=== PATIENT | male | born 1935 | race Caucasian/White ===

== ENCOUNTER → 2021-08-07 10:12 | Outpatient (CLI) | payer MEDICARE, OTHER, SELFPAY ==
--- NOTE | 2021-08-07 | DI.RAD.S_ITS ---
PROCEDURE: FL BARIUM SWALLOW W SPEECH INDICATIONS: Dysphagia, pharyngeal phase COMPARISON: None. TECHNIQUE: Examination was conducted in conjunction with speech pathology per standard protocol. In the lateral projection, filming was performed of the patient swallowing. AP projection filming may also be performed with patient swallowing. COMPARISON: FINDINGS: Function: The oral preparatory phase appears normal, with proper containment. The subsequent oral propulsive phase, pharyngeal phase, and esophageal phase of swallowing also appear normal with all proffered substances. There was silent tracheal aspiration Moderate residue was noted. Morphology: No cricopharyngeal bar is identified. No cervical esophageal webs. No Zenker's diverticulum. No strictures. IMPRESSION: Silent tracheal aspiration. Dictated by: Rodríguez Sneed M.D. on 08/07/2021 at 15:19 Approved by: Rodríguez Sneed M.D. on 08/07/2021 at 15:20
--- NOTE | 2021-08-08 17:09 | ST.SWALLOW ---
Visit Care Team Role Provider Type Doctor MD Stephon Primary Care Provider Non-Staff Specialty: Medical Address: Phone: Fax: Email: Attending Provider Referring Provider Specialty: Address: Phone: Fax: Email: Modified Barium Swallow Study MEDICAL RECORDS COORDINATOR Modified Barium Swallow Study Start: 08/07/21 16:11 Freq: Status: Active Protocol: Document 08/07/21 16:11 LNK (Rec: 08/07/21 17:20 LNK [id number]) Modified Barium Swallow Study Total Time Visit Start Time 10:30 Visit Stop Time 11:00 Total Visit Minutes 30 Referral Referring Physician Almas Mackey MD Setting Setting Outpatient Care Patient Information Identification Type Name,Date of Patient History Pt presented for a Modified Barium Swallow Study (MBSS) at the referral of his PCP. Pt reported that he has difficulty with swallowing with foods and liquids sticking in his throat. He reported the greatest difficulty with swallowing stringy foods ( vegetables, some meats, etc.). To compensate, the pt noted he cuts foods into small pieces and chews very thoroughly. He stated he crushes most of his pills and swallows them in a carrier as the whole pills will get stuck and stay in his throat. Capsules appear to be swallowed without difficulty he said. 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 He reports that his aphasia has been resolved. Additionally, pt reported hypothyroidism for which he takes Thyroxin. He expressed concern that his thyroid condition my be due to his exposure to Agent [place] while serving in the [employer] in [place]. Subjective Observations Pt is a pleasant man. He was seated in the fluoroscopy chair . The instructions and procedure wer described for him, after which he indicated he understood and agreed to proceed. Patient Positioning Position View Lat-A/P Imaging Lateral View Textures Administered Trials Presented Thin Liquid via Spoon,Thin Liquid via Cup,[place] Liquid via Cup,Pudding Thick Liquid via Spoon,Regular Textures Oral Phase Source: MBSIMP (TM) (C) Bolus Specific Scoring Grid Lip Closure WFL Tongue Control During Bolus Hold WFL Bolus Prep/Mastication WFL Bolus Transport/Lingual Motion WFL A/P Lingual Propulsion Delay No Oral Residue No Impairment (WNL) Residue Clearing No Impairment (WNL) Nasal Regurgitation No Additional Oral Phase Observations Pt has upper and lower dentures that were reported to fit well. OME was noted to be WNL. Diadochokineses was WNL. Pharyngeal Phase Source: MBSIMP (TM) (C) Bolus Specific Scoring Grid Delayed Initiation of Pharyngeal Swallow Yes: premature spillage to the valeculla Soft Palate Elevation No Impairment (WNL) Tongue Base Strength/Range of Motion Moderate Impairment Residue Along the Tongue Base Yes Clearance of Residue Along Tongue Base Mild Impairment Laryngeal Elevation Moderate Impairment Anterior Hyoid Movement Moderate Impairment Epiglottic Range of Motion Severe Impairment Vallecular Residue Yes: moderate-significant residue observed across all trials Clearance of Vallecular Residue Moderate Impairment Laryngeal Vestibular Closure Moderate Impairment Pharyngeal Stripping Wave Severe Impairment Posterior Pharyngeal Wall Residue Yes Clearance of Posterior Pharyngeal Wall Moderate Impairment Residue Upper Esophageal Sphincter Opening Moderate Impairment Residue in the Pyriform Sinuses Yes Clearance of Residue in the Pyriform Mild Impairment Sinuses Esophageal Clearance Upright Position Moderate Impairment Pharyngoesophageal Backflow Observed No Additional Pharyngeal Phase Observations Premature spillage to the valeculla was observed. Swallow response we delayed. Weak base of tongue strength as well as limited laryngopharyngeal contact were observe. This effected laryngeal elevation and hyoid movement and inversion of the epiglottis. The epiglottis did not invert, but was horizontal. Approximately 1/3 of the epiglottis was observed to be vertical against the posterior pharyngeal wall. This resulted in silent penetration of thin liquid into the laryngeal vestibule x5 with silent, tamar aspiration observed x3. Pt required cuing to cough, which did not clear the aspirated contrast. Residue from the valeculla was observed to penetrate the airway as well. No penetration/aspiration was observed with nectar thick liquids. Thin liquids were then safely tolerated using the strategy of turning his head and looking at his left knee (head turn with chin down ). Pharyngeal pooling was observed at the base of tongue , the valeculla, the posterior pharyngeal wall, pyriform sinuses and at the UES. Additionally, large osteopytes as well as a cricopharyngal bar were observed at the C5-C6 and C6-C7 level that impacted the bolus flow into and through the esophagus. The osteophytes and the bar together resulted in a very narrow space for bolus passage . This may explain the pt's sense of globus and pain (at times) as well as his regurgitation of undigested foods. A/P View Textures Administered Trials Presented Barium Tablet A/P View Observations Vocal Fold Function Good Residue Observed Valleculae Right,Valleculae Left,Pyriform Sinus Right, Pyriform Sinus Left Esophageal Function Stasis,Narrowing Additional Observations In the A-P view, the tablet stopped at the valeculla for ~ 10 seconds before it passed. Then again the tablet stopped in the upper esophagus near C5 -C6 for a few seconds before dislodging and passing in to the stomach. Clinical Impressions Dysphagia Type pharyngoesophageal dysphagia Findings The pt presented with pharyngoesophageal dysphagia. Base of tongue and epiglottal inversion were weak and resulted in a poor laryngeal seal. Penetration and aspiration was observed. Swallow therapy is recommended to increase the strength and ROM of the hyolarynx, which will increase the ability of the epiglottis to a fully inverted position, reducing aspiration risk. Additionally a referral to GI is recommended for evaluation re: above described observations. Rehabilitation Potential Good Patient Appropriate for Therapy Yes Recommendations Diet Liquids Order Thin Diet Order Regular Medication Recommendation As Tolerated,Crushed in Carrier Additional Dietary Needs Reminders to Use Strategies Aspiration Precautions Recommended Precautions Upright at 90 Degrees,Small Bites/Sips,Double Swallow,Left Head Turn,Left Head Tilt Additional Precautions HOB up at 45 degress to aid in esophageal emptying. Treatment Plan Therapy Recommendations Outpatient Speech Therapy,Base of Tongue Exercises, Compensatory Strategy Education Recommended Referrals Primary Care Physician,GI Consult,ENT Consult Compensatory Strategies Recommendations Sitting Upright (90 deg),Turn Head Left,Chin Tuck,Small Bites and Sips,Alternate Liquids/Solids
== END ==
PROVIDERS: PCP Internal Medicine; Referring Provider Internal Medicine; Visit Provider Internal Medicine
DX: R13.13 Dysphagia, pharyngeal phase (principal)
CPT/HCPCS: 74230; 92611

== ENCOUNTER → 2022-07-03 11:49 | Outpatient (CLI) | payer MEDICARE, OTHER, SELFPAY ==
[2022-07-03 13:41] LABS: BUN Creatinine Ratio 19.6 (6-22); Blood Urea Nitrogen 18 mg/dL (9-20); Calcium 8.4 mg/dL (8.4-10.2); Carbon Dioxide 33 mmol/L (22-32); Chloride 101 mmol/L (98-107); Estimated Glomerular Filt Rate > 60 mL/min (>60); Glucose 107 mg/dL (80-110); HEMOLYSIS < 15 (0-50); Potassium 4.5 mmol/L (3.4-5.1); Sodium 138 mmol/L (137-145)
--- NOTE | 2022-07-03 14:21 | DI.CT.S_ITS ---
PROCEDURE: CT SOFT TISSUE NECK W CON INDICATIONS: Dysphagia, oropharyngeal phase TECHNIQUE: After the administration of intravenous contrast, 3.0 mm axial sections acquired from the skull base to the upper chest with the patient phonating the sound EEE. Additional 1.5 mm axial sections acquired through the true vocal cords with the patient breathing through a straw. 1 mm thick coronal reformats were generated. For radiation dose reduction, the following was used: automated exposure control. COMPARISON: None. FINDINGS: Image quality: Excellent. Vocal cords: The right vocal cord is abnormal and appears hypodense and flaccid. There is medialization of the contralateral left vocal cord. Neck spaces: The oropharynx, nasopharynx, and pharynx demonstrate no mucosal lesions. The pyriform sinuses, epiglottis, vallecular, and tongue base all appear normal. Extramucosal spaces of the neck are unremarkable. Lymph nodes: No enlarged lymph nodes seen throughout the neck. Vessels: Visualized vasculature appears patent. Glands: The parotid and submandibular glands appear normal. Thyroid gland is small in size. Miscellaneous: Visualized brain and orbits appear unremarkable. Lung apices appear clear. Superficial soft tissues appear normal. Bones: No suspicious bony lesions. Visualized sinuses and mastoids appear unremarkable. At least moderate lower cervical spine degenerative changes are seen. IMPRESSION: Right vocal cord paralysis, with a retracted right vocal cord with associated compensatory medialization of the left vocal cord. No cause of the vocal cord paralysis is identified on this study. No tamar masses are seen. Dictated by: Rio Simmons M.D. on 07/03/2022 at 16:02 Approved by: Rio Simmons M.D. on 07/03/2022 at 16:05
== END ==
PROVIDERS: PCP Internal Medicine; Referring Provider Otolaryngology; Visit Provider Otolaryngology
DX: J38.01 Paralysis of vocal cords and larynx, unilateral (principal); R13.12 Dysphagia, oropharyngeal phase
CPT/HCPCS: 36415; 70491; 80048

== ENCOUNTER 2022-09-10 10:30 | Outpatient (RCR) | payer MEDICARE, OTHER, SELFPAY ==
--- NOTE | 2022-08-13 15:19 | ST.OPIE ---
Visit Care Team Role Provider Type Martinez Izaguirre DO Family Provider Non-Staff Primary Care Provider Specialty: Family Practice Address: [address] [place] [address], [id number] Email: Zak Yu MD Attending Provider Non-Staff Referring Provider Specialty: Ear, Nose, Throat Address: [address] [place] [address], [id number] Email: Speech-Language Pathology Initial Evaluation MACHINE II CUTTER Clinical Swallow Evaluation Start: 08/13/22 15:05 Freq: Status: Active Protocol: Document 08/13/22 15:06 TOMI (Rec: 08/13/22 15:19 ZS [id number]) Clinical Swallow Evaluation Session Time Visit Start Time 13:30 Visit Stop Time 14:00 Total Visit Minutes 30 Visit Information Visit Number Initial Evaluation Plan of Care Dates 08/13/2022 - 10/24/2022 Insurance Information Medicare Referral Referring Provider Dr. Izaguirre Reason for Referral Aspiration/penetration found on MBS Setting Assessment Location Outpatient Care Visit Type Note Type Initial evaluation Next Note Type Next Note Type Treatment Note Patient Information Identification Type Name History Jesse is an 87-year-old male who had a stroke in 2000 and has had difficulty swallowing, with food and liquid sticking in his throat. Pt had an MBS with Humaira Tilley on and case history was collected: He reported the greatest difficulty with swallowing 'stringy foods' ( vegetables, some meats, etc.). To compensate, the pt noted he cuts food into small pieces and chews very thoroughly. He stated he crushes most of his pills and swallows them in a carrier as the whole pills will get stuck and stay in his throat. Capsules appear to be swallowed without difficulty he said. 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 He reports that his aphasia has been resolved. Additionally, pt reported hypothyroidism for which he takes Thyroxin. He expressed concern that his thyroid condition may be due to his exposure to Agent [place] while serving in the [employer] in [email or web address]. Results of the MBS were as follows: The pt presented with pharyngoesophageal dysphagia. Base of tongue and epiglottal inversion were weak and resulted in a poor laryngeal seal. Penetration and aspiration was observed. Pt stated he will be traveling to [place] for 4-5 months in mid-September. Subjective Observations Pt arrived on time and agreed to participate in all session activities. Reported by Patient Current Diet Regular,Thin liquids Baseline Feeding Method Independent in self-feeding Objective Assessment Mental Status Alert,Responsive,Cooperative Findings Swallowing Function Pharyngoesophageal phase dysphagia Severity of Swallow Impairment Moderately impaired Contributing Factors to Swallow Impaired airway protection, Impairment Excessive pharyngeal residue Comment Did not complete formal assessment during session as pt demonstrated silent aspiration during MBS, which is not observable during clinical swallow evaluation. Provided education regarding swallow safety and exercises to strengthen throat and base of tongue muscles and increase swallow safety and comfort with oral intake. Provided handout with exercises and practiced each one. Pt demonstrated each exercise and MACHINE II CUTTER answered questions during practice session. Discussed POC given pt is leaving for a prolonged period in September. Pt expressed agreement and understanding with exercises and plan of care. Recommend speech therapy to continue pt education and improve swallow safety with use of pharyngeal and base of tongue exercises. Impact on Safety and Functioning Risk for aspiration Recommendations Swallowing Treatment Yes Frequency 1x/wk Duration 45 minutes Recommended Solids Regular Recommended Liquids Thin Safety Precautions/Swallowing Feed only when alert,Reduce Recommendations distractions,Upright position at least 30 minutes after meals,Small bites and sips when eating,Slow rate; swallow between bites Medication Recommendations As Tolerated Education Patient/Caregiver Education Described results of evaluation,Patient expressed understanding of evaluation, Patient expressed agreement with goals & treatment plans, Patient expressed understanding of safety precautions,Patient expressed understanding of feeding recommendations,Patient requires further education/ training Goals Short-term Goals 1. The pt will perform exercises to increase strength , coordination, and ROM of swallow musculature independently to reduce risk of aspiration and increase comfort with oral intake. Long-term Goals The pt will safely tolerate least restrictive diet to meet his nutrition and hydration needs.
--- NOTE | 2022-08-13 15:19 | ST.OPPOC ---
Physical, Occupational & Speech Therapy At [facility] Visit Care Team Role Provider Type Martinez Izaguirre DO Family Provider Non-Staff Primary Care Provider Address: [address] [place], [address] Zak Yu MD Attending Provider Non-Staff Referring Provider Address: [address] [place], [place] [address] [address], [address] Speech Pathology Plan of Care Plan of Care Dates 08/13/2022 - 10/24/[address] Izaguirre Patient History Jesse is an 87-year-old male who had a stroke in 2000 and has had difficulty swallowing, with food and liquid sticking in his throat. Pt had an MBS with Humaira Tilley on 08/07/2021 and case history was collected: He reported the greatest difficulty with swallowing 'stringy foods' (vegetables, some meats, etc.). To compensate, the pt noted he cuts food into small pieces and chews very thoroughly. He stated he crushes most of his pills and swallows them in a carrier as the whole pills will get stuck and stay in his throat. Capsules appear to be swallowed without difficulty he said. 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 He reports that his aphasia has been resolved. Additionally, pt reported hypothyroidism for which he takes Thyroxin. He expressed concern that his thyroid condition may be due to his exposure to Agent [place] while serving in the [employer] in [place]. Results of the MBS were as follows: The pt presented with pharyngoesophageal dysphagia. Base of tongue and epiglottal inversion were weak and resulted in a poor laryngeal seal. Penetration and aspiration was observed. Pt stated he will be traveling to [place] for 4- 5 months in mid-September. Short-term Goals 1. The pt will perform exercises to increase strength, coordination, and ROM of swallow musculature independently to reduce risk of aspiration and increase comfort with oral intake . Long-term Goals The pt will safely tolerate least restrictive diet to meet his nutrition and hydration needs. Comment: Electronically Signed by: EVONNE Daniels 08/13/22 [id number] If you are in agreement with this Plan of Care, please return a signed and dated copy. I have reviewed this Plan of Care and certify that the skilled therapy services above are required to meet the patient?s needs. Physician Signature Date Printed Name and Credentials Clinical Instructor Signature Printed Name and Credentials
--- NOTE | 2022-08-20 14:41 | ST.OPTN ---
Visit Care Team Role Provider Type Martinez Izaguirre DO Family Provider Non-Staff Primary Care Provider Address: [address] [place] [address], [address] Zak Yu MD Attending Provider Non-Staff Referring Provider Address: [address] [place], [place] [address], [address] FOLDER GLUER OPERATOR Treatment Note FOLDER GLUER OPERATOR Treatment Note Start: 08/20/22 14:33 Freq: Status: Active Protocol: Document 08/20/22 14:33 TOMI (Rec: 08/20/22 14:41 ZS [id number]) Speech Pathology Treatment Note Session Time Visit Start Time 10:30 Visit Stop Time 11:00 Total Visit Minutes 30 Visit Information Visit Number 1 Plan of Care Dates 08/13/2022 - 10/24/2022 Insurance Information Medicare Setting Treatment Setting Outpatient Care Visit Type Note Type Treatment Note Next Note Type Next Note Type Treatment Note General Information Patient History Jesse is an 87-year-old male who had a stroke in 2000 and has had difficulty swallowing, with food and liquid sticking in his throat. Pt had an MBS with Humaira Tilley on and case history was collected: He reported the greatest difficulty with swallowing 'stringy foods' ( vegetables, some meats, etc.). To compensate, the pt noted he cuts food into small pieces and chews very thoroughly. He stated he crushes most of his pills and swallows them in a carrier as the whole pills will get stuck and stay in his throat. Capsules appear to be swallowed without difficulty he said. 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 He reports that his aphasia has been resolved. Additionally, pt reported hypothyroidism for which he takes Thyroxin. He expressed concern that his thyroid condition may be due to his exposure to Agent [place] while serving in the [employer] in [place]. Results of the MBS were as follows: The pt presented with pharyngoesophageal dysphagia. Base of tongue and epiglottal inversion were weak and resulted in a poor laryngeal seal. Penetration and aspiration was observed. Pt stated he will be traveling to [place] for 4-5 months in mid-September. Subjective Identification Type Name Identification Reconciled With Medical Record Observations/Patient Presentation Jesse arrived on time and agreed to participate in all session activities. He reported consistent HEP and shared the super-supraglottic exercise was difficult as he often had a dry mouth and could not complete the second swallow. He reported all the other exercises were easy. Chief Complaint(s) Swallowing Objective Short Term Goals 1. The pt will perform exercises to increase strength , coordination, and ROM of swallow musculature independently to reduce risk of aspiration and increase comfort with oral intake. Maintenance Helper Goals The pt will safely tolerate least restrictive diet to meet his nutrition and hydration needs. Treatment Activities Reviewed HEP and practiced exercises. Provided feedback to increase challenge of exercises and answered pt questions regarding exercises. Assessment Patient Response to Treatment Excellent Impairments Identified Swallow Assessment of Improvement Palpated larynx as pt completed alnodra maneuver and pt held larynx in elevated position comfortably for 10 seconds. He exhibited difficulty with a dry mouth for second swallow when completing super-supraglottic swallow exercise, and it was recommended he complete the exercise with a sip of water to aid in dryness. Pt completed Karina Maneuver with tongue mostly in his mouth, not visibly protruding, and reported the exercise was very easy. Provided feedback to protrude tongue more to increase difficulty of exercise and pt practiced this and demonstrated understanding. Answered all pt questions and discussed adding additional exercises in next session depending on progress. Reviewed with Patient Goals,Progress Being Made,Home Exercise Program Patient/Caregiver Understanding Excellent Plan Frequency of Treatment Once a Week Length of Session 45 Minutes Therapeutic Contents Home Exercise Program, Swallowing/Feeding Provided Patient/Caregiver Instruction Home Exercise Program,Plan of Care,Questions/Concerns Therapy Recommendations Continue with Current Program
--- NOTE | 2022-08-27 15:11 | ST.OPTN ---
Visit Care Team Role Provider Type Martinez Izaguirre DO Family Provider Non-Staff Primary Care Provider Address: [address] [place] [address], [id number] Zak Yu MD Attending Provider Non-Staff Referring Provider Address: [address] [place], [place] [address], [address] CUSHION INSTALLER Treatment Note CUSHION INSTALLER Treatment Note Start: 08/20/22 14:33 Freq: Status: Active Protocol: Document 08/27/22 15:07 TOMI (Rec: 08/27/22 15:11 ZS [id number]) Speech Pathology Treatment Note Session Time Visit Start Time 14:30 Visit Stop Time 15:00 Total Visit Minutes 30 Visit Information Visit Number 2 Plan of Care Dates 08/13/2022 - 10/24/2022 Insurance Information Medicare Setting Treatment Setting Outpatient Care Visit Type Note Type Treatment Note Next Note Type Next Note Type Treatment Note General Information Patient History Jesse is an 87-year-old male who had a stroke in 2000 and has had difficulty swallowing, with food and liquid sticking in his throat. Pt had an MBS with Humaira Tilley on and case history was collected: He reported the greatest difficulty with swallowing 'stringy foods' ( vegetables, some meats, etc.). To compensate, the pt noted he cuts food into small pieces and chews very thoroughly. He stated he crushes most of his pills and swallows them in a carrier as the whole pills will get stuck and stay in his throat. Capsules appear to be swallowed without difficulty he said. 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 He reports that his aphasia has been resolved. Additionally, pt reported hypothyroidism for which he takes Thyroxin. He expressed concern that his thyroid condition may be due to his exposure to Agent [place]land while serving in the [employer] in [place]. Results of the MBS were as follows: The pt presented with pharyngoesophageal dysphagia. Base of tongue and epiglottal inversion were weak and resulted in a poor laryngeal seal. Penetration and aspiration was observed. Pt stated he will be traveling to [place] for 4-5 months in mid-September. Subjective Identification Type Name Identification Reconciled With Medical Record Observations/Patient Presentation Georgi arrived on time and agreed to participate in all session activities. 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 Pt reported when he did complete exercises, he was experiencing soreness in his tongue from biting down during the Karina Maneuver. Chief Complaint(s) Swallowing Objective Short Term Goals 1. The pt will perform exercises to increase strength , coordination, and ROM of swallow musculature independently to reduce risk of aspiration and increase comfort with oral intake. Skilled Nursing Goals The pt will safely tolerate least restrictive diet to meet his nutrition and hydration needs. Treatment Activities Reviewed HEP and practiced exercises. Provided feedback to increase challenge of exercises and answered pt questions regarding exercises. Assessment Patient Response to Treatment Excellent Impairments Identified Swallow Assessment of Improvement Pt reported drinking sips of water aids in completing Karina Maneuver and super- supraglottic exercises. He reported soreness in his tongue following Karina Maneuver, from biting down on his tongue. Recommend trying exercises using fingers to hold tongue rather than teeth to reduce discomfort. Pt expressed agreement. Provided new exercise and practiced with pt. He exhibited understanding. Answered pt questions. Pt has an appointment next Saturday (09/07 ) and another appointment on Saturday (09/10). Will discuss POC with these two appointments (and future appointments) at appointment on 09/07). Reviewed with Patient Goals,Progress Being Made,Home Exercise Program Patient/Caregiver Understanding Excellent Plan Frequency of Treatment Once a Week Length of Session 45 Minutes Therapeutic Contents Home Exercise Program, Swallowing/Feeding Provided Patient/Caregiver Instruction Home Exercise Program,Plan of Care,Questions/Concerns Therapy Recommendations Continue with Current Program
--- NOTE | 2022-09-10 11:03 | ST.OPDS ---
Visit Care Team Role Provider Type Martinez Izaguirre DO Family Provider Non-Staff Primary Care Provider Address: [address] [place] [address], [id number] Zak Yu MD Attending Provider Non-Staff Referring Provider Address: [facility] [address], [address] SPACE CONTROL AGENT Treatment Note SPACE CONTROL AGENT Treatment Note Start: 08/20/22 14:33 Freq: Status: Active Protocol: Document 09/10/22 10:57 ZS (Rec: 09/10/22 11:03 ZS [id number]) Speech Pathology Treatment Note Session Time Visit Start Time 10:30 Visit Stop Time 11:00 Total Visit Minutes 30 Visit Information Visit Number 3 Plan of Care Dates 08/13/2022 - 10/24/2022 Insurance Information Medicare Setting Treatment Setting Outpatient Care Visit Type Note Type Discharge Summary General Information Patient History Jesse is an 87-year-old male who had a stroke in 2000 and has had difficulty swallowing, with food and liquid sticking in his throat. Pt had an MBS with Humaira Tilley on and case history was collected: He reported the greatest difficulty with swallowing 'stringy foods' ( vegetables, some meats, etc.). To compensate, the pt noted he cuts food into small pieces and chews very thoroughly. He stated he crushes most of his pills and swallows them in a carrier as the whole pills will get stuck and stay in his throat. Capsules appear to be swallowed without difficulty he said. 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 He reports that his aphasia has been resolved. Additionally, pt reported hypothyroidism for which he takes Thyroxin. He expressed concern that his thyroid condition may be due to his exposure to Agent [place] while serving in the [employer] in [place]. Results of the MBS were as follows: The pt presented with pharyngoesophageal dysphagia. Base of tongue and epiglottal inversion were weak and resulted in a poor laryngeal seal. Penetration and aspiration was observed. Pt stated he will be traveling to [place] for 4-5 months in mid-September. Subjective Identification Type Name Identification Reconciled With Medical Record Observations/Patient Presentation Jesse arrived on time and agreed to participate in all session activities. He reported consistent HEP and improvement in swallowing solids. Pt indicated liquids still are difficult, but he has no difficulty swallowing solids at this time. Pt added he has several demands on his schedule at this time and is not able to continue attending speech therapy. Pt requested discharge to home exercise program. Chief Complaint(s) Swallowing Objective Short Term Goals 1. The pt will perform exercises to increase strength , coordination, and ROM of swallow musculature independently to reduce risk of aspiration and increase comfort with oral intake. Detention Goals The pt will safely tolerate least restrictive diet to meet his nutrition and hydration needs. Treatment Activities Reviewed HEP, provided additional exercises, and discussed questions and POC. Assessment Patient Response to Treatment Excellent Impairments Identified Swallow Assessment of Improvement Pt reported drinking sips of water aids in completing Karina Manuever and super- supraglottic exercises. Discussed use of chin tuck or effortful swallow when drinking thin liquids. Provided new exercises and practiced with pt. He exhibited understanding. Answered pt questions. Discharging from speech therapy to home exercise program due to consistency in HEP and current demands on pt schedule. Pt has made excellent progress toward goals. Given results of previous MBS, improvement in swallow safety is unable to be assessed with clinical swallow assessment. Reviewed with Patient Goals,Progress Being Made,Home Exercise Program Patient/Caregiver Understanding Excellent Plan Frequency of Treatment Once a Week Length of Session 45 Minutes Therapeutic Contents Home Exercise Program, Swallowing/Feeding Provided Patient/Caregiver Instruction Home Exercise Program,Plan of Care,Questions/Concerns Therapy Recommendations Discharge to Home Exercise Program Reason for Discharge Pt request due to increased demands on schedule, cannot make appointments.
== END 2022-09-10 11:29 ==
LOC: SP 10:30
PROVIDERS: Family Provider Family Medicine; PCP Family Medicine; Referring Provider Specialist; Visit Provider Specialist
DX: J38.01 Paralysis of vocal cords and larynx, unilateral (principal); R13.10 Dysphagia, unspecified
CPT/HCPCS: 92526; 92610

== ENCOUNTER → 2022-09-17 06:37 | Outpatient (CLI) | payer MEDICARE, OTHER, SELFPAY ==
--- NOTE | 2022-09-17 06:39 | DI.ECHO.S_ITS ---
[facility] +---------+ : : [address] : : : : [id number] : : : : Phone: [phone]+ Echocardiogram Report + + :Name: MAITE REY Study Date: 09/17/2022 Height: 70 in : :[facility] ReadingLocation: Weight: 160 lb : : Gender: Male BSA: 1.9 m2 : :: 1935 Age: 87 yrs BP: 125/65 mmHg: :Reason For Study: Aortic valve stenosis : :Ordering Physician: HERNAN, : :RAJINDER Performed By: Edgar Renee : :Referring: RAJINDER BECERRA : + + Interpretation Summary Normal sinus rhythm. Normal LV size and wall thickness; normal wall motion and LV systolic function. EF is 55-60%. Stage I diastolic dysfunction. Normal chamber sizes. Aortic valve leaflets are moderately thickened and calcified especially the right coronary leaflet. There is mild aortic stenosis and mild associated aortic regurgitation. Compared to prior study 09/22/2014, aortic stenosis got a little worse. Procedure: A two-dimensional transthoracic echocardiogram with color flow and Doppler was performed. The study quality was technically adequate. Comparison is made with the echocardiogram of 09/22/2014. Left Ventricle: The left ventricle is normal in size and wall thickness. Left ventricular systolic function is normal. The ejection fraction is estimated to be 55-60%. There are no focal wall motion abnormalities. Diastolic parameters suggest a relaxation abnormality of the left ventricle, consistent with probable normal filling pressures. Right Ventricle: The right ventricle is normal in size and function. Atria: Both atria are normal in size. The interatrial septum grossly appears intact with no obvious evidence for an atrial septal defect. Mitral Valve: The mitral valve is normal in structure and function. There is mild mitral regurgitation. Aortic Valve: The aortic valve is moderately calcified. There is mild aortic stenosis. The aortic valve mean gradient is 18 mmHg. The calculated aortic valve area is 1.1 cm2. There is mild aortic regurgitation. Tricuspid Valve: The tricuspid valve is normal in structure and function. Pulmonary artery pressures cannot be estimated because of the lack of a measurable TR jet velocity. There is a trace or physiologic amount of tricuspid regurgitation. Pulmonic Valve: The pulmonic valve is normal in structure and function. There is mild pulmonic regurgitation. Great Vessels: The aortic root is normal size. The dimensions of the ascending aorta are normal. The IVC is of normal diameter and collapses greater than 50% with a sniff. This suggests a low right atrial pressure of 3 mm Hg. Pericardium/ Pleura There is no pericardial effusion. There is no pleural effusion. MMode/2D Measurements & Calculations LVIDd: 5.5 cm LVOT diam: 2.2 cm LVIDs: 3.6 cm Ao root diam: 3.2 cm FS: 34.5 % asc Aorta Diam: 3.3 cm IVSd: 0.90 cm LVPWd: 0.80 cm LV matias. diameter/BSA (cm/m^2): 2.9 LV sys. diameter/BSA (cm/m^2): 1.9 LA dimension: 3.6 cm RA long axis: 4.2 cm LA A2 area: 16.5 cm2 RA area: 12.8 cm2 LA A4 area: 15.5 cm2 RA vol: 33.0 ml LA length (vol): 4.9 cm RA : 17.4 ml/m2 LA vol: 44.0 ml LA vol index: 23.2 ml/m2 TAPSE_phl: 2.4 cm Doppler Measurements & Calculations Ao V2 max: 281.0 cm/sec LVOT Max Piyush: 77.0 cm/sec Ao V2 mean: 205.0 cm/sec LV V1 max P.4 mmHg Ao max P.0 mmHg LV V1 VTI: 21.1 cm Ao mean P.0 mmHg TORIN(I,D): 1.1 cm2 Ao V2 VTI: 75.3 cm TORIN(V,D): 1.0 cm2 sev ratio: 0.28 TORIN indexed to BSA (cm^2/m^2): 0.56 AI P1/2t: 561.3 msec AI dec slope: 191.0 cm/sec2 MV E max piyush: 79.7 cm/sec SV(LVOT): 80.2 ml MV A max piyush: 80.1 cm/sec MV E/A: 1.00 Med Peak E' Piyush: 7.7 cm/sec E/E' med: 10.3 Lat Peak E' Piyush: 8.3 cm/sec E/E' lat: 9.6 E/e' average: 9.9 MV dec time: 0.20 sec AV P1/2t-pr_phl: 560.0 msec MV P1/2t-pr_phl: 60.0 msec AV VR_phl: 0.27 TORIN(VTI)/BSA_phl: 0.56 Electronically signed by: Alissa Gaffney M.D. on Reading Physician:09/17/2022 02:21 PM
--- NOTE | 2022-09-17 07:59 | DI.MRI.S_ITS ---
PROCEDURE: MR HEAD/BRAIN WO/W CON INDICATIONS: Dizziness giddiness/headaches/hx aortic stenosis TECHNIQUE: Noncontrast axial T1 spin echo, axial T2 fast spin echo, sagittal and axial FLAIR, coronal T2 fast spin echo, axial gradient echo, axial diffusion and ADC through the brain. After the administration of contrast, axial and coronal and sagittal T1 spin echo with fat saturation through the brain. COMPARISON: [facility], CT, CT SOFT TISSUE NECK W CON, 07/03/2022, 14:07. FINDINGS: Image quality: Excellent. CSF spaces: Basal cisterns are patent. No extra-axial fluid collections. Ventricles are normal in size and shape. Brain: No midline shift. No intracranial bleeds or masses. No abnormal intracranial enhancement. There is cerebral volume loss for age. There is periventricular white matter chronic small vessel ischemic change. The brainstem appears normal. Diffusion-weighted images demonstrate no acute ischemic insults. Encephalomalacia is present in the right parietal lobe consistent with old ischemia. There is a 6 mm focus decreased signal intensity within the left frontal temporal lobe on gradient sequence. This area does not correspond to other signal abnormality. No priors are available for comparison. Normal intravascular flow voids are present. Skull and face: Calvarial marrow is normal in signal. Orbits appear normal. Sinuses: Sinuses and mastoids appear clear. IMPRESSION: 1. No acute intracranial process. 2. Moderate atrophy and chronic microvascular ischemic changes. 3. 6 mm hypointense focus within the left frontal temporal lobe on gradient sequence as above suggestive of small cavernous angioma. Dictated by: Emmanuelle Benito M.D. on 09/17/2022 at 11:39 Approved by: Emmanuelle Benito M.D. on 09/17/2022 at 11:42
== END ==
PROVIDERS: Family Provider Family Medicine; PCP Family Medicine; Referring Provider Student in an Organized Health Care Education/Training Program; Visit Provider Student in an Organized Health Care Education/Training Program
DX: G93.89 Other specified disorders of brain (principal); I08.0 Rheumatic disorders of both mitral and aortic valves; R42 Dizziness and giddiness; R51.9 Headache, unspecified
CPT/HCPCS: 70553; 93306; A9579

== ENCOUNTER → 2022-10-02 08:35 | Outpatient (CLI) | payer MEDICARE, OTHER, SELFPAY ==
--- NOTE | 2022-10-02 | DI.US.S_ITS ---
PROCEDURE: US CAROTID DOPPLER BI INDICATIONS: DIZZINESS/HEADACHE TECHNIQUE: Color and pulse Doppler interrogation was performed of both carotid systems, with image documentation and velocity measurements. COMPARISON: [facility], MR, MR HEAD/BRAIN WO/W CON, 09/17/2022, 8:13. FINDINGS: Stenosis calculations are based on SRU (Society of Radiologists in Ultrasound) criteria. The flow velocities and the arterial waveforms are normal within both carotid arterial systems. Atherosclerotic plaque is seen on both sides. The estimated degree of internal carotid artery stenosis is less than 50%. Antegrade flow is confirmed within both vertebral arteries. IMPRESSION: No hemodynamically significant stenosis is seen. Atherosclerotic plaque is noted bilaterally. Dictated by: Rio Simmons M.D. on 10/02/2022 at 15:06 Approved by: Rio Simmons M.D. on 10/02/2022 at 15:07
== END ==
PROVIDERS: Family Provider Family Medicine; PCP Family Medicine; Referring Provider Student in an Organized Health Care Education/Training Program; Visit Provider Student in an Organized Health Care Education/Training Program
DX: I65.23 Occlusion and stenosis of bilateral carotid arteries (principal); R42 Dizziness and giddiness; R51.9 Headache, unspecified
CPT/HCPCS: 93880

== ENCOUNTER → 2023-06-27 13:34 | Outpatient (CLI) | payer MEDICARE, OTHER, SELFPAY ==
--- NOTE | 2023-06-27 | DI.ECHO.S_ITS ---
[facility]---------+ [facility] +---------+ : : [address] : : : : [id number] : : : : Phone: [phone]---------+ Echocardiogram Report + + :Name: MAITE REY Study Date: 06/27/2023 Height: 70 in : :[facility] ReadingLocation: Weight: 158 lb : : Gender: Male BSA: 1.9 m2 : :: 1935 Age: 88 yrs BP: 154/77 mmHg: :Reason For Study: Aortic Valve Stenosis : :Ordering Physician: ALICIA, : :LESTER Performed By: Aidee Jiménez : :Referring: LESTER PLEITEZ : + + Interpretation Summary 1) Normal left ventricular thickness, size, wall motion, and systolic function (EF 55-60%). 2) Normal right ventricular size and function. 3) There is moderate aortic stenosis (valve area 0.9cm2, mean gradient 19mmHg, severity ratio 0.26). 4) Compared to the Echo done 09/17/2022, no significant change. Procedure: A two-dimensional transthoracic echocardiogram with color flow and Doppler was performed. The study quality was technically adequate. Comparison is made with the echocardiogram of 09/17/2022. The patient was in normal sinus rhythm during the exam. Left Ventricle: The left ventricle is normal in size. There is normal left ventricular wall thickness. Proximal septal thickening is noted. The ejection fraction is estimated to be 55-60%. Left ventricular systolic function appears normal without focal wall motion abnormalities. Diastolic parameters suggest a pseudonormalization pattern, consistent with probable elevated filling pressures. Right Ventricle: The right ventricle is normal size. The right ventricular systolic function is normal. Atria: The left atrial size is normal. Right atrial size is normal. There is no Doppler evidence for an interatrial shunt. Mitral Valve: The mitral valve leaflets appear mildly thickened, but open well. There is no mitral valve stenosis. There is mild mitral regurgitation. Aortic Valve: The aortic valve is heavily calcified. There is moderate aortic stenosis. The peak aortic velocity is 2.92 m/sec. The aortic valve mean gradient is 20 mmHg. There is mild aortic regurgitation. Tricuspid Valve: The tricuspid valve is normal. There is no tricuspid stenosis. There is trace tricuspid regurgitation. Pulmonary artery pressures cannot be estimated because of the lack of a measurable TR jet velocity. Pulmonic Valve: The pulmonic valve leaflets are thin and pliable; valve motion is normal. There is no pulmonic valvular stenosis. There is trace pulmonic regurgitation. Great Vessels: The aortic root is normal size. The ascending aorta is at the upper limits of normal in size. The pulmonary artery is normal size. The IVC is of normal diameter and collapses greater than 50% with a sniff. This suggests a low right atrial pressure of 3 mm Hg. Pericardium/ Pleura There is no pericardial effusion. There is no pleural effusion. MMode/2D Measurements & Calculations LVIDd: 4.5 cm LVOT diam: 2.0 cm LVIDs: 3.8 cm Ao root diam: 3.1 cm FS: 15.6 % asc Aorta Diam: 3.3 cm IVSd: 1.5 cm LVPWd: 0.90 cm LV matias. diameter/BSA (cm/m^2): 2.4 LV sys. diameter/BSA (cm/m^2): 2.0 LA A2 area: 14.7 cm2 RA long axis: 4.4 cm LA A4 area: 12.7 cm2 RA area: 11.7 cm2 LA length (vol): 4.9 cm RA vol: 26.6 ml LA vol: 32.5 ml RA : 14.1 ml/m2 LA vol index: 17.2 ml/m2 RVD1 (basal): 3.7 cm LVLs ap4: 4.8 cm LVLd ap2: 6.4 cm TAPSE_phl: 2.5 cm LVLs ap2: 5.2 cm Doppler Measurements & Calculations Ao V2 max: 287.0 cm/sec LVOT Max Piyush: 82.2 cm/sec Ao V2 mean: 205.5 cm/sec LV V1 max P.7 mmHg Ao max P.0 mmHg LV V1 VTI: 21.1 cm Ao mean P.0 mmHg TORIN(I,D): 0.81 cm2 Ao V2 VTI: 80.8 cm TORIN(V,D): 0.89 cm2 sev ratio: 0.26 TORIN indexed to BSA (cm^2/m^2): 0.43 MV E max piyush: 100.0 cm/sec PA V2 max: 83.3 cm/sec MV A max piyush: 81.8 cm/sec PA V2 mean: 59.0 cm/sec MV E/A: 1.2 PA mean P.0 mmHg Med Peak E' Piyush: 5.6 cm/sec PA pr(Accel): 31.3 mmHg E/E' med: 17.8 Lat Peak E' Piyush: 8.3 cm/sec E/E' lat: 12.0 E/e' average: 14.9 MV dec time: 0.17 sec MVA(VTI): 1.8 cm2 MV V2 mean: 59.6 cm/sec SV(LVOT): 65.7 ml MV mean P.7 mmHg MV V2 VTI: 35.6 cm AV VR_phl: 0.29 MV P1/2t-pr_phl: 51.0 msec TORIN(VTI)/BSA_phl: 0.35 Reading Physician:07:50 PM
== END ==
PROVIDERS: Family Provider Family Medicine; PCP Physician Assistant; Referring Provider Internal Medicine Cardiovascular Disease; Visit Provider Internal Medicine Cardiovascular Disease
DX: I08.0 Rheumatic disorders of both mitral and aortic valves (principal)
CPT/HCPCS: 93306

== ENCOUNTER → 2024-04-21 14:28 | Outpatient (CLI) | payer MEDICARE, OTHER, SELFPAY | PROVIDERS: Family Provider Family Medicine; PCP Nurse Practitioner Family; Referring Provider Nurse Practitioner Family; Visit Provider Nurse Practitioner Family | DX: R06.02 Shortness of breath (principal); F17.210 Nicotine dependence, cigarettes, uncomplicated; R94.2 Abnormal results of pulmonary function studies | CPT/HCPCS: 94060; 94726; 94729 ==

== ENCOUNTER → 2024-05-20 13:39 | Outpatient (CLI) | payer MEDICARE, OTHER, SELFPAY ==
[2024-05-20 14:09] LABS: Hematocrit 39.8 % (41-53); Hemoglobin 13.6 g/dL (13.5-17.5); Mean Corpuscular HGB Conc 34.2 % (30-36); Mean Corpuscular Hemoglobin 31.3 PG (26-34); Mean Corpuscular Volume 91.4 fL (80-100); Platelet Count 141 X10^3/uL (150-400); Red Blood Cell Count 4.35 X10^6/uL (4.5-5.9); Red Cell Distribution Width 13.7 % (11.6-14.8); White Blood Cell Count 6.9 X10^3/uL (4.5-11.0)
[2024-05-20 14:30] LABS: BUN Creatinine Ratio 27.8 (6-22); Blood Urea Nitrogen 25 mg/dL (9-20); Calcium 9.1 mg/dL (8.4-10.2); Carbon Dioxide 32 mmol/L (22-32); Chloride 102 mmol/L (98-107); Cholesterol 135 mg/dL (140-199); Estimated Glomerular Filt Rate > 60 mL/min (>60); Glucose 72 mg/dL (80-110); HDL Cholesterol 58 mg/dL (40-60); HEMOLYSIS < 15 (0-50); LDL Cholesterol Calculated 54 mg/dL (<100); Potassium 5.3 mmol/L (3.4-5.1); Sodium 138 mmol/L (137-145); Triglycerides 114 mg/dL (35-150)
== END ==
PROVIDERS: Family Provider Family Medicine; PCP Nurse Practitioner Family; Referring Provider Internal Medicine Cardiovascular Disease; Visit Provider Internal Medicine Cardiovascular Disease
DX: I65.22 Occlusion and stenosis of left carotid artery (principal); Z86.73 Personal history of transient ischemic attack (TIA), and cerebral infarction without residual deficits
CPT/HCPCS: 36415; 80048; 80061; 85027

== ENCOUNTER → 2024-06-23 10:40 | Outpatient (CLI) | payer MEDICARE, OTHER, SELFPAY ==
--- NOTE | 2024-06-23 10:42 | DI.RAD.S_ITS ---
PROCEDURE: XR CHEST 2V INDICATIONS: ALEXANDER TECHNIQUE: 2 views of the chest were acquired. COMPARISON: None. FINDINGS: Surgical changes and devices: None. Lungs and pleura: Lungs are clear. No pleural effusions or pneumothorax. Mediastinum: Mediastinal contours are normal. Heart size is normal. Bones and chest wall: No suspicious bony abnormalities irregular appearing lower ribs. Soft tissues appear unremarkable. IMPRESSION: No acute cardiopulmonary process. Dictated by: Damian Lock M.D. on 06/23/2024 at 15:52 Approved by: Damian Lock M.D. on 06/23/2024 at 16:01
== END ==
LOC: RAD 10:42
PROVIDERS: Family Provider Family Medicine; PCP Nurse Practitioner Family; Referring Provider Internal Medicine Critical Care Medicine; Visit Provider Internal Medicine Critical Care Medicine
DX: R06.00 Dyspnea, unspecified (principal)
CPT/HCPCS: 71046

== ENCOUNTER → 2024-07-08 14:29 | Outpatient (CLI) | payer MEDICARE, OTHER, SELFPAY ==
--- NOTE | 2024-07-08 14:31 | DI.ECHO.S_ITS ---
[facility] : : [address] : : [place] : : [id number] : : Phone: [phone] Echocardiogram Report + + :Name: MAITE REY Study Date: 07/08/2024 Height: 70 in : :Hospital ReadingLocation: Weight: 157 lb : : Gender: Male BSA: 1.9 m2 : :: 1935 Age: 89 yrs BP: 145/73 mmHg: :Reason For Study: DYPSNEA, AORTIC STENOSIS : :Ordering Physician: JACK, : :ADRIENNE Performed By: Willam Reynolds : :Referring: ADRIENNE SANTIAGO : + + Interpretation Summary Normal sinus rhythm. Normal left ventricular thickness, size, wall motion, and systolic function (EF 55-60%). Mild LA enlargement; otherwise normal chamber sizes. Severe aortic stenosis. DVI 0.25. peak velocity is 3.8 m/sec with mean gradient of 35 mm Hg. Calculated valve area is 0.89 cm2. Aortic valve is a trileaflet structure with moderately thickened and calcified leaflets with severely reduced leaflet excursion. There is moderate associated aortic regurgitation. Compared to prior echo 06/27/2023 aortic stenosis progressed. Valve area is stable; severity ratio is worse; mean gradient is up from 19 mm Hg to 35 mm Hg. Procedure: A two-dimensional transthoracic echocardiogram with color flow and Doppler was performed. The study quality was technically adequate. Comparison is made with the echocardiogram of 06/27/2023. The patient was in sinus rhythm with heart rates between 56-66 bpm during the exam. Left Ventricle: The left ventricle is normal in size and wall thickness. The ejection fraction is estimated to be 55-60%. Diastolic function could not be accurately assessed due to confounding valvular disease. Right Ventricle: The right ventricle is normal size. The right ventricular systolic function is normal. Atria: The left atrium is mildly dilated. Right atrial size is normal. The interatrial septum grossly appears intact with no obvious evidence for an atrial septal defect. Mitral Valve: The mitral valve is normal. There is no mitral valve stenosis. There is mild mitral regurgitation. Aortic Valve: The aortic valve is trileaflet. There is moderate aortic valve sclerosis. The opening of the prosthetic aortic valve appears to be limited. There is severe aortic stenosis. The peak aortic velocity is 3.82 m/sec. The aortic valve mean gradient is 35.3 mmHg. The calculated aortic valve area is 0.9 cm2. There is mild aortic regurgitation. Tricuspid Valve: The tricuspid valve is normal. There is no tricuspid stenosis. There is a trace or physiologic amount of tricuspid regurgitation. Pulmonic Valve: The pulmonic valve is not well visualized. There is no pulmonic valvular stenosis. There is mild pulmonic regurgitation. Great Vessels: The aortic root is normal size. The ascending aorta is at the upper limits of normal in size. The inferior vena cava was not visualized. Pericardium/ Pleura There is no pericardial effusion. There is no pleural effusion. MMode/2D Measurements & Calculations LVIDd: 5.2 cm LVOT diam: 2.2 cm LVIDs: 3.4 cm Ao root diam: 3.6 cm FS: 34.2 % asc Aorta Diam: 3.7 cm IVSd: 0.95 cm LVPWd: 0.98 cm LV matias. diameter/BSA (cm/m^2): 2.8 LV sys. diameter/BSA (cm/m^2): 1.8 LA A2 area: 21.4 cm2 RA long axis: 4.1 cm LA A4 area: 18.1 cm2 RA area: 11.6 cm2 LA length (vol): 4.8 cm RA vol: 27.4 ml LA vol: 67.7 ml RA : 14.6 ml/m2 LA vol index: 35.9 ml/m2 RVD1 (basal): 3.8 cm RVD2 (mid): 3.3 cm TAPSE: 2.8 cm Doppler Measurements & Calculations Ao V2 max: 382.2 cm/sec LVOT Max Piyush: 86.4 cm/sec Ao V2 mean: 284.6 cm/sec LV V1 max P.0 mmHg Ao max P.4 mmHg LV V1 VTI: 24.0 cm Ao mean P.3 mmHg TORIN(I,D): 0.89 cm2 Ao V2 VTI: 102.9 cm TORIN(V,D): 0.86 cm2 sev ratio: 0.23 TORIN indexed to BSA (cm^2/m^2): 0.47 AI P1/2t: 426.8 msec AI dec slope: 276.6 cm/sec2 MV E max piyush: 79.8 cm/sec PA V2 max: 96.6 cm/sec MV A max piyush: 81.6 cm/sec PA V2 mean: 62.8 cm/sec MV E/A: 0.98 PA mean P.8 mmHg Med Peak E' Piyush: 4.7 cm/sec PA pr(Accel): 27.6 mmHg E/E' med: 17.0 Lat Peak E' Piyush: 7.0 cm/sec E/E' lat: 11.3 E/e' average: 14.2 MV dec time: 0.23 sec SV(LVOT): 91.5 ml Electronically signed by: Alissa Gaffney M.D. on Reading Physician:07/09/2024 04:55 AM
== END ==
LOC: ECHO 14:30
PROVIDERS: Family Provider Family Medicine; PCP Nurse Practitioner Family; Referring Provider Internal Medicine Critical Care Medicine; Visit Provider Internal Medicine Critical Care Medicine
DX: I08.0 Rheumatic disorders of both mitral and aortic valves (principal); R06.00 Dyspnea, unspecified
CPT/HCPCS: 93306

== ENCOUNTER 2024-08-23 18:53 | Emergency (ER) | payer MEDICARE, OTHER, SELFPAY ==
[2024-08-23 18:59] VITALS: BP 136/65; PULSE 70; RESP 18; TEMP 36.9; O2SAT 98; BMI 22.9
--- NOTE | 2024-08-23 20:15 | PC.NURSE ---
thinks he might have bumped his arm where he had a cardiac cath
--- NOTE | 2024-08-23 20:15 | PC.NURSE ---
some bruising noted to right arm, no drainage , no swelling
--- NOTE | 2024-08-23 20:45 | ED.SKABFB ---
HPI - Skin/Abscess/Foreign Bdy General Chief complaint: Skin/Abscess/Foreign Body Stated complaint: hx procedure, poss internal bleeding rt arm Time Seen by Provider: 08/23/24 19:55 Source: patient Mode of arrival: Ambulatory Limitations: no limitations History of Present Illness HPI narrative: Patient is an 89-year-old male. Within the past couple days had a radial approach to a cardiac catheterization. States that he was following all of the postprocedure instructions and has been resting it for the past week however today he use the elliptical machine and afterwards started to have bruising around the site to his right forearm. No pain. No fevers. Related Data Home Medications Medication Instructions Recorded Confirmed aspirin 81 mg tablet,delayed 81 mg PO DAILY 11/11/20 06/23/24 release (Adult Low Dose Aspirin) atorvastatin 40 mg tablet 40 mg PO DAILY 11/11/20 06/23/24 levothyroxine 88 mcg tablet 88 mcg PO DAILY 11/11/20 06/23/24 (Synthroid) Previous Rx's Medication Instructions Recorded albuterol sulfate 90 mcg/actuation 2 puff inhalation Q4-6H PRN 06/23/24 aerosol inhaler shortness of breath or wheezing #8.5 grams Allergies Allergy/AdvReac Type Severity Reaction Status Date / Time No Known Drug Allergies Allergy Verified 06/23/24 10:03 Review of Systems Review of Systems Narrative: See HPI Patient History Social History Smoking Status: Former smoker Smoking Status: Former smoker alcohol intake frequency: a few times a week Substance Use Type: does not use Exam Initial Vital Signs Initial Vital Signs: Vital Signs Temperature 98.4 F 08/23/24 18:59 Pulse Rate 70 08/23/24 18:59 Respiratory Rate 18 08/23/24 18:59 Blood Pressure 136/65 08/23/24 18:59 Pulse Oximetry 98 08/23/24 18:59 Oxygen Delivery Method Room Air 08/23/24 18:59 Skin Other: Bruising and very mild swelling to the volar aspect of the right forearm. Extrem Other: Flexion-extension of the right wrist is unremarkable. Right elbows unremarkable. Course Vital Signs Vital signs: Vital Signs - 8 hr 08/23/24 18:59 Temperature 98.4 F Pulse Rate 70 Respiratory Rate 18 Blood Pressure 136/65 Pulse Oximetry 98 Oxygen Delivery Method Room Air MDM - Skin/Abscess/Foreign Bdy MDM Narrative Medical decision making narrative: Patient does have bruising to the volar aspect of the right forearm. No signs of infection. Does not appear to have a expanding hematoma. Radial pulses intact. We discussed how he should rest his right wrist. We discussed ice. Discussed return precautions and follow-up instructions. He expressed understanding and agreement with plan. Discharge Plan Departure Patient Disposition: Home Clinical Impression: Postoperative ecchymosis Activity Restrictions/Additional Instructions: Keep all of your scheduled medical appointments and follow all of the post operative instructions given to you by the weapons and tactics instructor. Continue to take all of your medicines as directed. Return to the emergency department for new symptoms. Prescriptions: No Action levothyroxine [Synthroid] 88 mcg tablet 88 mcg PO DAILY atorvastatin 40 mg tablet 40 mg PO DAILY aspirin [Adult Low Dose Aspirin] 81 mg tablet,delayed release (DR/EC) 81 mg PO DAILY albuterol sulfate 90 mcg/actuation HFA aerosol inhaler 2 puff inhalation Q4-6H PRN (Reason: shortness of breath or wheezing) Qty: 8.5 3RF Referrals: Aidee Hall ARNP [Primary Care Provider] - Stand Alone Forms: Patient Portal/API
== END 2024-08-23 20:52 | disposition home or self-care (01) ==
PROVIDERS: Emergency Provider Emergency Medicine; Family Provider Family Medicine; PCP Nurse Practitioner Family
DX: Z98.890 Other specified postprocedural states (principal); S50.11XA Contusion of right forearm, initial encounter
CPT/HCPCS: 99281

== ENCOUNTER → 2024-10-14 09:49 | Outpatient (CLI) | payer MEDICARE, OTHER, SELFPAY ==
[2024-10-14 11:16] LABS: Add Manual Diff / Slide Review NO; Basophils Absolute Auto 0 /uL (0-100); Basophils Percent Auto 0.2 % (0-2); Eosinophils Absolute Auto 100 /uL (0-450); Eosinophils Percent Auto 2.7 % (2-4); Hematocrit 41.1 % (41-53); Hemoglobin 13.7 g/dL (13.5-17.5); Lymphocytes Absolute Auto 2300 /uL (1100-4500); Lymphocytes Percent Auto 40.8 % (25-40); Mean Corpuscular HGB Conc 33.4 % (30-36); Mean Corpuscular Hemoglobin 30.8 PG (26-34); Mean Corpuscular Volume 92.3 fL (80-100); Monocytes Absolute Auto 1000 /uL (0-900); Monocytes Percent Auto 17.7 % (3-14); Neutrophils Absolute Auto 2200 /uL (1500-7000); Neutrophils Percent Auto 38.6 % (50-75); Platelet Count 138 X10^3/uL (150-400); Red Blood Cell Count 4.45 X10^6/uL (4.5-5.9); Red Cell Distribution Width 13.4 % (11.6-14.8); White Blood Cell Count 5.6 X10^3/uL (4.5-11.0)
[2024-10-14 11:40] LABS: BUN Creatinine Ratio 19.1 (6-22); Blood Urea Nitrogen 21 mg/dL (9-20); Calcium 8.9 mg/dL (8.4-10.2); Carbon Dioxide 30 mmol/L (22-32); Chloride 101 mmol/L (98-107); Estimated Glomerular Filt Rate > 60 mL/min (>60); Glucose 80 mg/dL (80-110); HEMOLYSIS < 15 (0-50); Potassium 4.3 mmol/L (3.4-5.1); Sodium 136 mmol/L (137-145)
== END ==
PROVIDERS: Family Provider Family Medicine; Referring Provider Internal Medicine; Visit Provider Internal Medicine
DX: I20.0 Unstable angina (principal)
CPT/HCPCS: 36415; 80048; 85025

== ENCOUNTER → 2024-11-12 09:28 | Outpatient (CLI) | payer MEDICARE, OTHER, SELFPAY ==
[2024-11-12 10:36] LABS: Add Manual Diff / Slide Review NO; Basophils Absolute Auto 0 /uL (0-100); Basophils Percent Auto 0.3 % (0-2); Eosinophils Absolute Auto 200 /uL (0-450); Eosinophils Percent Auto 3.4 % (2-4); Hematocrit 38.4 % (41-53); Hemoglobin 12.9 g/dL (13.5-17.5); Lymphocytes Absolute Auto 1800 /uL (1100-4500); Lymphocytes Percent Auto 34.4 % (25-40); Mean Corpuscular HGB Conc 33.7 % (30-36); Mean Corpuscular Hemoglobin 30.9 PG (26-34); Mean Corpuscular Volume 91.6 fL (80-100); Monocytes Absolute Auto 1100 /uL (0-900); Neutrophils Absolute Auto 2200 /uL (1500-7000); Neutrophils Percent Auto 41.9 % (50-75); Platelet Count 154 X10^3/uL (150-400); Red Blood Cell Count 4.19 X10^6/uL (4.5-5.9); Red Cell Distribution Width 13.2 % (11.6-14.8); White Blood Cell Count 5.4 X10^3/uL (4.5-11.0)
[2024-11-12 10:44] LABS: BUN Creatinine Ratio 19.8 (6-22); Blood Urea Nitrogen 18 mg/dL (9-20); Calcium 8.8 mg/dL (8.4-10.2); Carbon Dioxide 30 mmol/L (22-32); Chloride 101 mmol/L (98-107); Estimated Glomerular Filt Rate > 60 mL/min (>60); Glucose 87 mg/dL (80-110); HEMOLYSIS < 15 (0-50); Potassium 4.5 mmol/L (3.4-5.1); Sodium 137 mmol/L (137-145)
== END ==
PROVIDERS: Family Provider Family Medicine; Referring Provider Physician Assistant; Visit Provider Physician Assistant
DX: Z95.2 Presence of prosthetic heart valve (principal)
CPT/HCPCS: 36415; 80048; 85025

== ENCOUNTER → 2025-05-12 07:34 | Outpatient (CLI) | payer MEDICARE, OTHER, SELFPAY ==
--- NOTE | 2025-05-12 07:36 | DI.MRI.S_ITS ---
PROCEDURE: MR LUMBAR SPINE WO CON INDICATIONS: increase lumbar pain TECHNIQUE: Noncontrast sagittal T1 spin echo and T2 fast echo, sagittal STIR, and T2 fast spin echo through the lumbar spine. In cases with scoliosis, additional coronal T2 fast spin echo may be performed. COMPARISON: None. FINDINGS: Image quality: Excellent Mild levoscoliosis of the lumbar spine, centered at L3-4. Grade 1 anterolisthesis L3 on L4, L4 on L5. Mild retrolisthesis of L5 on S1. Multiple she small Schmorl's node are noted. Vertebral body height of the lumbar spine are well maintained. Multilevel fibrovascular endplate change, most pronounced and moderate at L4-5. Multilevel disc bulge and disc desiccation. Conus terminates at the level of T12-L1, and is unremarkable. Right neural foraminal stenosis: Mild at L2-3, L3-4, L4-5 and mild at L5-S1. Left neural foraminal stenosis: Mild at L2-3, L3-4, L4-5, and L5-S1. Axial images: T12-L1: Mild bilateral facet arthropathy. No central canal stenosis. L1-2: Mild disc bulge. Mild bilateral facet arthropathy. No central canal stenosis. Mild disc bulge. Moderate bilateral facet arthropathy. No central canal stenosis. L3-4: Disc bulge, superimposed on central disc protrusion. Severe bilateral facet arthropathy with ligamentum flava hypertrophy. Moderate to severe central canal stenosis. L4-5: Severe bilateral facet arthropathy with ligamentum flap per trophy. Disc bulge. Moderate central canal stenosis. L5-S1: Moderate bilateral facet arthropathy. Disc bulge, asymmetric to the left. No central canal stenosis. Visualized sacrum is intact. No abdominal aortic aneurysm. Right renal cyst. IMPRESSION: 1. Multilevel degenerative changes lumbar spine, most pronounced at L3-4, where there is moderate to severe central canal stenosis, and mild bilateral neural foraminal stenosis. Dictated by: Sarah Alvarez M.D. on 05/12/2025 at 17:40 Approved by: Sarah Alvarez M.D. on 05/12/2025 at 17:49
== END ==
PROVIDERS: Family Provider Family Medicine; Referring Provider Registered Nurse; Visit Provider Registered Nurse
DX: M47.26 Other spondylosis with radiculopathy, lumbar region (principal); M47.27 Other spondylosis with radiculopathy, lumbosacral region; M48.061 Spinal stenosis, lumbar region without neurogenic claudication; M48.07 Spinal stenosis, lumbosacral region
CPT/HCPCS: 72148

== ENCOUNTER → 2025-05-24 12:14 | Outpatient (CLI) | payer MEDICARE, OTHER, SELFPAY ==
--- NOTE | 2025-05-24 12:16 | DI.ECHO.S_ITS ---
[facility]---------+ [facility] : : [address] : : [place] : : [id number] : : Phone: [phone] Echocardiogram Report + + :Name: MAITE REY Study Date: 05/24/2025 Height: 68.5 in: :[facility] ReadingLocation: Weight: 155 lb : : Gender: Male BSA: 1.8 m2 : :: 1935 Age: 89 yrs BP: 131/78 mmHg: :Reason For Study: S/P TAVR : :Ordering Physician: ALICIA, : :LESTER Performed By: Lesli Beebe : :Referring: LESTER PLEITEZ : + + Interpretation Summary 1) Normal left ventricular thickness, size, wall motion, and systolic function (EF 55-60%). 2) Normal right ventricular size and function. 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 No aortic regurgitation is present. 4) There is mild luminal irregularity and echogenicity in the abdominal aorta, suggestive of aortic atherosclerotic disease. 5) Compared to the Echo done 12/04/2024, mean gradient across the bioprosthetic aortic valve has increased from 14mmHg to 28mmHg on this study. Procedure: A two-dimensional transthoracic echocardiogram with color flow and Doppler was performed. The study quality was technically adequate. Comparison is made with the echocardiogram of 12/04/2024. The patient had frequent PVCs during the exam. Short segments of bigeminy noted. The heart rate ranged between 41-58 bpm during the study. Left Ventricle: The left ventricle is normal in size and wall thickness. The ejection fraction is estimated to be 55-60%. Left ventricular systolic function appears normal without focal wall motion abnormalities. Right Ventricle: The right ventricle is normal in size and function. Atria: The left atrial size is normal. The right atrium is normal in size. There is no Doppler evidence for an interatrial shunt. Mitral Valve: The mitral valve leaflets appear mildly thickened, but open well. There is mild to moderate mitral regurgitation. Aortic Valve: There is a bioprosthetic aortic valve. The prosthetic aortic valve is well-seated. The peak aortic velocity is 3.4 m/sec. The aortic valve mean gradient is 28 mmHg. No aortic regurgitation is present. Tricuspid Valve: The tricuspid valve is not well visualized, but is grossly normal. There is mild tricuspid regurgitation. Pulmonary artery pressures cannot be estimated because of the lack of a measurable TR jet velocity. Pulmonic Valve: The pulmonic valve leaflets are thin and pliable; valve motion is normal. There is mild to moderate pulmonic regurgitation. Great Vessels: The aortic root is normal size. The dimensions of the ascending aorta are normal. There is mild luminal irregularity and echogenicity in the abdominal aorta, suggestive of aortic atherosclerotic disease. The IVC is of normal diameter and collapses greater than 50% with a sniff. This suggests a low right atrial pressure of 3 mm Hg. Pericardium/ Pleura There is no pericardial effusion. There is no pleural effusion. MMode/2D Measurements & Calculations LVIDd: 5.1 cm LVOT diam: 2.0 cm LVIDs: 3.5 cm asc Aorta Diam: 3.8 cm FS: 31.3 % Ao Arch Diam (Prox Trans): 2.9 cm EPSS: 0.92 cm IVSd: 0.88 cm LVPWd: 0.72 cm LV matias. diameter/BSA (cm/m^2): 2.8 LV sys. diameter/BSA (cm/m^2): 1.9 LA A2 area: 15.8 cm2 RA long axis: 4.6 cm LA A4 area: 20.3 cm2 RA area: 16.0 cm2 LA length (vol): 5.1 cm RA vol: 47.4 ml LA vol: 53.6 ml RA : 25.7 ml/m2 LA vol index: 29.0 ml/m2 IVC diam: 0.87 cm RVD1 (basal): 3.2 cm RVD2 (mid): 3.2 cm TAPSE: 1.8 cm Doppler Measurements & Calculations Ao V2 max: 339.2 cm/sec LVOT Max Piyush: 80.9 cm/sec Ao V2 mean: 252.4 cm/sec LV V1 max P.6 mmHg Ao max P.0 mmHg LV V1 VTI: 20.5 cm Ao mean P.7 mmHg TORIN(I,D): 0.70 cm2 Ao V2 VTI: 89.3 cm TORIN(V,D): 0.73 cm2 sev ratio: 0.23 TORIN indexed to BSA (cm^2/m^2): 0.38 MV E max piyush: 73.0 cm/sec PA V2 max: 76.4 cm/sec MV A max piyush: 84.8 cm/sec PA V2 mean: 51.9 cm/sec MV E/A: 0.86 PA mean P.2 mmHg Med Peak E' Piyush: 5.5 cm/sec PA pr(Accel): 22.5 mmHg E/E' med: 13.3 Lat Peak E' Piyush: 6.2 cm/sec E/E' lat: 11.7 E/e' average: 12.5 MV dec time: 0.24 sec SV(LVOT): 62.9 ml Reading Physician:07:03 PM
== END ==
PROVIDERS: Family Provider Family Medicine; Referring Provider Internal Medicine Cardiovascular Disease; Visit Provider Internal Medicine Cardiovascular Disease
DX: I08.1 Rheumatic disorders of both mitral and tricuspid valves (principal); I49.3 Ventricular premature depolarization; Z95.2 Presence of prosthetic heart valve
CPT/HCPCS: 93306

== ENCOUNTER → 2025-08-03 10:54 | Outpatient (CLI) | payer MEDICARE, OTHER, SELFPAY ==
[2025-08-03 11:47] LABS: Blood Urea Nitrogen 16 mg/dL (9-20); Calcium 9.0 mg/dL (8.4-10.2); Carbon Dioxide 28 mmol/L (22-32); Chloride 101 mmol/L (98-107); Cholesterol 139 mg/dL (140-199); Estimated Glomerular Filt Rate > 60 mL/min (>60); Glucose 88 mg/dL (70-99); HDL Cholesterol 67 mg/dL (40-60); HEMOLYSIS < 15 (0-50); Potassium 4.5 mmol/L (3.4-5.1); Sodium 137 mmol/L (137-145); Triglycerides 81 mg/dL (35-150)
[2025-08-03 11:52] LABS: Hematocrit 42.8 % (41-53); Hemoglobin 14.4 g/dL (13.5-17.5); Mean Corpuscular HGB Conc 33.7 % (30-36); Mean Corpuscular Hemoglobin 31.0 PG (26-34); Mean Corpuscular Volume 91.8 fL (80-100); Platelet Count 125 X10^3/uL (150-400)
== END ==
PROVIDERS: Family Provider Family Medicine; Referring Provider Internal Medicine Cardiovascular Disease; Visit Provider Internal Medicine Cardiovascular Disease
DX: I25.10 Atherosclerotic heart disease of native coronary artery without angina pectoris (principal)
CPT/HCPCS: 36415; 80048; 80061; 85027